=== PATIENT | male | born 1930 | race Caucasian/White ===

== ENCOUNTER 2016-11-04 14:50 | Emergency (ER) | payer MEDICARE ==
[~2016-11-04] VITALS: Ht 182.9 cm; Wt 75.9 kg
[~2016-11-04 14:50] MED LIST: COUMADIN 2MG2 MG/TAB PO; COUMADIN4 MG PO; DULCOLAX S10 MG/SUPP RC; LIDODERM 5% PATC1 EA TP; LIPITOR20 MG PO; MILK OF MA400 MG/52 PO; MULTI VITAMINS1 TAB PO; MULTIVITAMIN1 CTB PO; NITRO-DUR0.1 MG/PAT TD; NORCO 325 MG-51 TAB PO; NORVASC 5MG5 MG/TAB PO; OSCAL 500 TAB500 MG PO; PLAVIX 75MG TAB75 MG PO; PRIL40 PO; SENOKOT S 50 MG1 TAB PO; TOPROL XL100 MG PO; TYLENOL 325MG325 MG PO; ULTRAM 50MG TAB50 MG PO; VITAMIN C500 MG PO
[2016-11-04 15:56] LABS: HEMATOCRIT 37.1 % (42.0-52.0); MEAN CELL VOLUME 93 fl (80.0-100.0); MEAN CORPUSCULAR HEMOGLOBIN 29 pg (27.0-31.0); MEAN CORPUSCULAR HGB CONC 32 g/dl (33.0-37.0); MEAN PLATELET VOLUME 9.4 fl (7.4-10.4); PLATELET COUNT 100 K/mm3 (130-400); RED BLOOD COUNT 4.01 M/mm3 (4.20-5.60); REDCELL DISTRIBUTION WIDTH-CV 14.6 % (11.5-14.5); WHITE BLOOD COUNT 6.4 K/mm3 (4.8-10.8)
[2016-11-04 15:57] LABS: ADD PATHOLOGY DIFF REVIEW NO; HEMOGLOBIN 11.8 g/dl (13.5-18.0)
[2016-11-04 16:04] LABS: ADJUSTED CALCIUM 9.6 mg/dL (8.4-10.2); BILIRUBIN,TOTAL 2.2 mg/dL (0.0-1.0); CALCIUM 9.6 mg/dL (8.4-10.2); CREATININE, serum 1.77 mg/dL (0.66-1.25); POTASSIUM 4.4 mmol/L (3.4-5.0); TOTAL PROTEIN 7.5 gm/dL (6.4-8.2)
[2016-11-04 16:16] LABS: BAND 30 % (0-10); BASOPHIL 1 % (0-2); EOSINOPHIL 6 % (0-4); NEUTROPHILS 43 % (42.0-75.2); PLATELET ESTIMATE DECREASED (NORMAL); TOTAL CELLS COUNTED 100
[2016-11-04 17:36] LABS: PH 5 (5-8); SQUAMOUS EPITHELIAL 0-2 /hpf; URINE APPEARANCE Clear; URINE BACTERIA None Seen /hpf; URINE BILIRUBIN Negative (NEGATIVE); URINE BLOOD Negative (NEGATIVE); URINE COLOR Yellow; URINE GLUCOSE Negative (NEGATIVE); URINE KETONE Negative (NEGATIVE); URINE UROBILINOGEN Negative (NEGATIVE); URINE WBC 0-2 /hpf
[2016-11-04] MEDS ORDERED: MIRALAX PA17 GM/Dose PO (17:41)
[2016-11-04] MEDS ORDERED: TYLENOL 325MG325 MG PO (17:46)
[2016-11-04] MEDS ORDERED: ULTRAM 50MG TAB50 MG PO (17:47)
[2016-11-04] MEDS ORDERED: CALCIUM 600-D 61 TAB PO (17:47)
[2016-11-04] MEDS ORDERED: COUMADIN4 MG PO (17:48)
[2016-11-04] MEDS ORDERED: VITAMIN D32000 I1 PO (17:49)
[2016-11-04] MEDS ORDERED: NORCO 325 MG-51 TAB PO ×2 (17:49→17:51)
[2016-11-04] MEDS ORDERED: ZOFRAN ODT4 MG PO (17:51)
[2016-11-04 18:30] VITALS: BP 145/90; PULSE 85
== END 2016-11-04 18:30 | disposition home or self-care (01) ==
LOC: COL.ER 14:50
PROVIDERS: Emergency Medicine
DX: R11.10 Vomiting, unspecified (principal); D72.825 Bandemia; M54.89 Other dorsalgia; I48.91 Unspecified atrial fibrillation; I10 Essential (primary) hypertension; I45.10 Unspecified right bundle-branch block; R10.12 Left upper quadrant pain; R10.32 Left lower quadrant pain; Z79.01 Long term (current) use of anticoagulants
CPT/HCPCS: J2270

== ENCOUNTER 2017-04-29 21:09 | Emergency (ER) | payer MEDICARE ==
[~2017-04-29] VITALS: Ht 182.9 cm; Wt 80.5 kg
[~2017-04-29 21:09] MED LIST changes: +CALCIUM 600-D 61 TAB PO; +MIRALAX PA17 GM/Dose PO; +VITAMIN D32000 I1 PO; +ZOFRAN ODT4 MG PO
[2017-04-29 21:11] VITALS: BP 161/101; PULSE 82; TEMP 97.9
[2017-04-29] MEDS ORDERED: NORCO 325 MG-51 TAB PO (23:09)
== END 2017-04-29 23:30 | disposition home or self-care (01) ==
LOC: COL.ER 21:09
DX: S76.012A Strain of muscle, fascia and tendon of left hip, initial encounter (principal); I10 Essential (primary) hypertension; I25.10 Atherosclerotic heart disease of native coronary artery without angina pectoris; I48.91 Unspecified atrial fibrillation; I25.2 Old myocardial infarction; Z79.01 Long term (current) use of anticoagulants; Z95.1 Presence of aortocoronary bypass graft; Z95.5 Presence of coronary angioplasty implant and graft; Z90.49 Acquired absence of other specified parts of digestive tract; Z98.890 Other specified postprocedural states; W18.39XA Other fall on same level, initial encounter; Y92.009 Unspecified place in unspecified non-institutional (private) residence as the place of occurrence of the external cause

== ENCOUNTER → 2017-09-19 | Outpatient (REF) ==
[~2017-09-19] MED LIST changes: +ASPIRIN E.C. 8181 MG PO; +COUMADIN 22.5 MG/TAB PO; +COUMADIN 5MG5 MG/TAB PO; +DEEP SEA 45 ML45 ML NS; +HCTZ12.5TAB PO; +HEPARIN LOCK FLU5 M1 IV; +IPRATROPIUM BROM3 M1 IH; +LEVAQUIN 750MG750 M1 PO; +NS INT FLUSH 1010 ML IV; +PRILOSEC 20MG20 MG PO; +TRIPLE ANTIBIO0.9 GM TP
[2017-09-19 17:50] LABS: BASO % 0.4 % (0.0-2.0); EOS # 0.3 (0.0-0.7); EOS % 2.9 % (0-4.0); GRAN # 6.7 (1.4-6.5); GRAN % 65.4 % (42.2-75.2); LYMPH # 2.3 (1.2-3.4); LYMPH % 22.2 % (20.0-51.0); MEAN CELL VOLUME 89 fl (80.0-100.0); MEAN CORPUSCULAR HGB CONC 32 g/dl (33.0-37.0); MEAN PLATELET VOLUME 9.9 fl (7.4-10.4); MONO # 0.9 (0.1-0.6); MONO % 8.5 % (1.7-9.3); PLATELET COUNT 233 K/mm3 (130-400); RED BLOOD COUNT 3.55 M/mm3 (4.20-5.60); REDCELL DISTRIBUTION WIDTH-CV 15.5 % (11.5-14.5)
[2017-09-19 17:53] LABS: HEMATOCRIT 31.7 % (42.0-52.0); HEMOGLOBIN 10.1 g/dl (13.5-18.0); MEAN CORPUSCULAR HEMOGLOBIN 28 pg (27.0-31.0)
[2017-09-19 17:58] LABS: CALCIUM 9.1 mg/dL (8.4-10.2); CREATININE, serum 1.95 mg/dL (0.66-1.25); POTASSIUM 4.4 mmol/L (3.4-5.0)
== END ==
LOC: ZLAB.STJ 17:39
PROVIDERS: Internal Medicine
DX: J18.1 Lobar pneumonia, unspecified organism (principal)

== ENCOUNTER → 2017-09-25 | Outpatient (REF) ==
[2017-09-25 09:36] LABS: CALCIUM 9.3 mg/dL (8.4-10.2); CREATININE, serum 1.89 mg/dL (0.66-1.25); POTASSIUM 4.6 mmol/L (3.4-5.0)
== END ==
LOC: ZLAB.STJ 09:18
PROVIDERS: Internal Medicine
DX: R79.89 Other specified abnormal findings of blood chemistry (principal)

== ENCOUNTER → 2017-10-19 | Outpatient (CLI) | payer MEDICARE | LOC: COL.RAD 14:49 | DX: I71.4 Abdominal aortic aneurysm, without rupture (principal); I51.7 Cardiomegaly; I25.10 Atherosclerotic heart disease of native coronary artery without angina pectoris; K86.89 Other specified diseases of pancreas; K90.3 Pancreatic steatorrhea; Z90.5 Acquired absence of kidney ==

== ENCOUNTER → 2017-11-02 | Outpatient (CLI) | payer MEDICARE | LOC: COL.RAD 12:25 | DX: C44.42 Squamous cell carcinoma of skin of scalp and neck (principal) ==